=== PATIENT | female | born 1980 | race Caucasian/White ===

== ENCOUNTER 2017-08-26 22:30 | Emergency (ER) | payer MEDICAID ==
[~2017-08-26] VITALS: Ht 157.5 cm; Wt 94.5 kg
[~2017-08-26 22:30] MED LIST: ALBU8.5H8 IH; CARI350T PO; CHLO118M PO; CLIN-79 PO; DOXY-1 PO; HYDR-569 PO; NITR100C6 PO; NO HOME MEDS; ONDA8TAB9 PO
[2017-08-26] MEDS ORDERED: cephalexin 500mg capsule PO STA (23:13)
[2017-08-26] MEDS ORDERED: sulfamethoxazole/trimethoprim DS (800/160mg) tablet PO STA (23:13)
[2017-08-26] MEDS ORDERED: mupirocin 2% ointment 22GM TP STA (23:22)
[2017-08-26] MEDS ORDERED: MUPI22OI30 TOP (23:32)
[2017-08-26] MEDS ORDERED: BACDS PO (23:32)
[2017-08-26] MEDS ORDERED: CEPH500C2 PO (23:32)
[2017-08-26 23:36] VITALS: BP 124/81
== END 2017-08-26 23:44 | disposition home or self-care (01) ==
LOC: ER 22:31
DX: T81.4XXA Infection following a procedure, initial encounter (principal); I10 Essential (primary) hypertension; G43.909 Migraine, unspecified, not intractable, without status migrainosus; F15.10 Other stimulant abuse, uncomplicated; Z88.6 Allergy status to analgesic agent; Z88.1 Allergy status to other antibiotic agents; Z88.0 Allergy status to penicillin
CPT/HCPCS: 99284; A6255

== ENCOUNTER 2017-08-27 18:01 | Inpatient (IN) | payer MEDICAID ==
[~2017-08-27] VITALS: Ht 157.5 cm; Wt 94.5 kg
[~2017-08-27 18:01] MED LIST changes: +BACDS PO; +CEPH500C2 PO; +MUPI22OI30 TOP
[2017-08-27] MEDS ORDERED: normal saline 1000ml 1,000 ML IV ONE (20:25)
[2017-08-27] MEDS ORDERED: morphine 4 MG/ML inj SYRINge IV ONE (20:25)
[2017-08-27] MEDS ORDERED: ondansetron/PF 4mg/2ml inj IV ONE (20:25)
[2017-08-27] MEDS ORDERED: temazepam 15mg capsule PO PRN (21:00)
[2017-08-27 21:25] LABS: BASOPHILS # (AUTO) 0.1 X10'3 (0-0.2); BASOPHILS % (AUTO) 0.8 % (0-1); EOSINOPHILS # (AUTO) 0.3 X10'3 (0-0.9); EOSINOPHILS % (AUTO) 4.6 % (0-6); HEMATOCRIT 43.1 % (35.0-45.0); HEMOGLOBIN 15.1 g/dl (12.0-16.0); LYMPHOCYTES % (AUTO) 39.9 % (21-51); MEAN CORPUSCULAR HEMOGLOBIN 30.9 PG (27.0-31.0); MEAN CORPUSCULAR HGB CONC 34.9 % (33.0-36.5); MEAN CORPUSCULAR VOLUME 88.4 FL (78-98); MEAN PLATELET VOLUME 9.3 FL (7.4-10.4); MONOCYTES # (AUTO) 0.6 X10'3 (0-0.9); MONOCYTES % (AUTO) 7.7 % (2-12); NEUTROPHILS # (AUTO) 3.5 X10'3 (1.8-7.7); PLATELET COUNT 264 X10'3 (140-440); RED BLOOD COUNT 4.87 X10'6 (4.20-5.60); RED CELL DISTRIBUTION WIDTH 13.1 % (11.5-14.5); WHITE BLOOD COUNT 7.5 X10'3 (4.5-11.0)
[2017-08-27 21:41] LABS: ALANINE AMINOTRANSFERASE 22 U/L (12-78); ALBUMIN 4.3 G/DL (3.4-5.0); ALBUMIN/GLOBULIN RATIO 1.2 (1.1-1.5); ALKALINE PHOSPHATASE 88 IU/L (46-116); ANION GAP 10 (8-16); ASPARTATE AMINO TRANSFERASE 12 U/L (10-37); BILIRUBIN,TOTAL 0.4 MG/DL (0.1-1.0); BLOOD UREA NITROGEN 11 MG/DL (7-18); BUN/CREATININE RATIO 13.6 (6.6-38.0); CALCIUM 9.5 MG/DL (8.5-10.1); CHLORIDE 103 MMOL/L (99-107); CREATININE 0.81 MG/DL (0.40-0.90); GLUCOSE 96 MG/DL (70-104); POTASSIUM 3.7 MMOL/L (3.5-5.1); SODIUM 139 MMOL/L (135-145); TOTAL CARBON DIOXIDE 26.2 MMOL/L (24-32); TOTAL PROTEIN 7.8 G/DL (6.4-8.2); eGFR 79 ML/MIN
[2017-08-27] MEDS ORDERED: magnesium hydroxide 30ml (MOM) UD suspension PO PRN (22:40)
[2017-08-27] MEDS ORDERED: HYDROcodone/acetaminophen 5mg/325mg tablet PO PRN (22:40)
[2017-08-27] MEDS ORDERED: ondansetron/PF 4mg/2ml inj IV PRN (22:40)
[2017-08-27] MEDS ORDERED: acetaminophen 650mg rectal suppository RC PRN (22:40)
[2017-08-27] MEDS ORDERED: acetaminophen 325mg tablet PO PRN ×2 (22:40)
[2017-08-27] MEDS ORDERED: diphenhydrAMINE 50 mg/ml inj IV PRN (22:40)
[2017-08-27] MEDS ORDERED: bisacodyl 10mg suppository rectal RC PRN (22:40)
[2017-08-27] MEDS ORDERED: mag hydrox/Alum hydrox/simeth 30ml oral suspension PO PRN (22:40)
[2017-08-27] MEDS ORDERED: metoclopramide 5 mg/ml inj IV PRN (22:40)
[2017-08-27] MEDS ORDERED: albuterol 2.5 MG/3 ML nebule NEB PRN (22:50)
[2017-08-27] MEDS ORDERED: cyclobenzaprine 10mg tablet PO PRN (22:50)
[2017-08-27] MEDS: normal saline 1000ml 1,000 ML IV SCH (23:19)
[2017-08-27 23:45] VITALS: BP 116/46
[2017-08-28] MEDS ORDERED: clindamycin-Cleocin 900mg/D5W 50 ML IV SCH
[2017-08-28] MEDS: clindamycin 600mg/D5W 50ml 50 ML IV SCH ×3 (00:18→16:39)
[2017-08-28] MEDS: HYDROcodone/acetaminophen 10/325mg tab PO PRN ×4 (04:53→19:15)
[2017-08-28 05:19] LABS: BASOPHILS % (AUTO) 0.6 % (0-1); EOSINOPHILS # (AUTO) 0.4 X10'3 (0-0.9); EOSINOPHILS % (AUTO) 5.4 % (0-6); HEMATOCRIT 39.3 % (35.0-45.0); LYMPHOCYTES # (AUTO) 2.7 X10'3 (1.1-4.8); LYMPHOCYTES % (AUTO) 33.7 % (21-51); MEAN CORPUSCULAR HEMOGLOBIN 31.5 PG (27.0-31.0); MEAN CORPUSCULAR HGB CONC 35.7 % (33.0-36.5); MEAN CORPUSCULAR VOLUME 88.1 FL (78-98); MONOCYTES # (AUTO) 0.6 X10'3 (0-0.9); MONOCYTES % (AUTO) 7.8 % (2-12); NEUTROPHILS # (AUTO) 4.2 X10'3 (1.8-7.7); NEUTROPHILS % (AUTO) 52.5 % (42-75); PLATELET COUNT 220 X10'3 (140-440); RED BLOOD COUNT 4.46 X10'6 (4.20-5.60); RED CELL DISTRIBUTION WIDTH 13.2 % (11.5-14.5); WHITE BLOOD COUNT 7.9 X10'3 (4.5-11.0)
[2017-08-28 05:40] LABS: ANION GAP 9 (8-16); BLOOD UREA NITROGEN 11 MG/DL (7-18); BUN/CREATININE RATIO 13.8 (6.6-38.0); CHLORIDE 107 MMOL/L (99-107); GLUCOSE 99 MG/DL (70-104); POTASSIUM 4.3 MMOL/L (3.5-5.1); SODIUM 141 MMOL/L (135-145); TOTAL CARBON DIOXIDE 25.2 MMOL/L (24-32)
[2017-08-28 05:41] LABS: ALANINE AMINOTRANSFERASE 22 U/L (12-78); ALBUMIN 3.3 G/DL (3.4-5.0); ALBUMIN/GLOBULIN RATIO 1.2 (1.1-1.5); ALKALINE PHOSPHATASE 72 IU/L (46-116); ASPARTATE AMINO TRANSFERASE 11 U/L (10-37); BILIRUBIN,TOTAL 0.5 MG/DL (0.1-1.0); CALCIUM 7.9 MG/DL (8.5-10.1); TOTAL PROTEIN 6.1 G/DL (6.4-8.2); eGFR 80 ML/MIN
[2017-08-28 06:00] VITALS: BP 83/45
[2017-08-28 06:10] VITALS: BP 93/56
[2017-08-28] MEDS: docusate sod 100mg capsule PO SCH ×2 (08:49→19:15)
[2017-08-28] MEDS: lamoTRIgine 100mg tablet PO SCH (08:49)
[2017-08-28] MEDS: pantoprazole 40mg Tablet.DR PO SCH (08:49)
[2017-08-28] MEDS: heparin, porcine 5000 units/ml vial SQ SCH ×2 (08:52→19:16)
[2017-08-28] MEDS: diphenhydrAMINE 25mg capsule PO PRN ×3 (08:56→20:59)
[2017-08-28] MEDS: normal saline 1000ml 1,000 ML IV SCH ×2 (09:02→19:16)
[2017-08-28 10:00] VITALS: BP 99/59
[2017-08-28] MEDS ORDERED: normal saline 1000ml 1,000 ML IV ONE (10:55)
[2017-08-28 18:00] VITALS: BP 103/61
[2017-08-28 22:00] VITALS: BP 97/45
[2017-08-29] MEDS: HYDROcodone/acetaminophen 10/325mg tab PO PRN ×4 (00:53→16:52)
[2017-08-29] MEDS: normal saline 1000ml 1,000 ML IV SCH (04:56)
[2017-08-29 05:48] LABS: BASOPHILS % (AUTO) 0.7 % (0-1); EOSINOPHILS # (AUTO) 0.3 X10'3 (0-0.9); EOSINOPHILS % (AUTO) 6.1 % (0-6); LYMPHOCYTES # (AUTO) 2.7 X10'3 (1.1-4.8); LYMPHOCYTES % (AUTO) 47.4 % (21-51); MEAN CORPUSCULAR VOLUME 88.7 FL (78-98); MONOCYTES # (AUTO) 0.5 X10'3 (0-0.9); MONOCYTES % (AUTO) 8.8 % (2-12); NEUTROPHILS # (AUTO) 2.1 X10'3 (1.8-7.7); PLATELET COUNT 221 X10'3 (140-440); RED BLOOD COUNT 4.52 X10'6 (4.20-5.60); RED CELL DISTRIBUTION WIDTH 12.9 % (11.5-14.5); WHITE BLOOD COUNT 5.7 X10'3 (4.5-11.0)
[2017-08-29 06:00] VITALS: BP 96/57
[2017-08-29 06:09] LABS: ALBUMIN 3.3 G/DL (3.4-5.0); ALBUMIN/GLOBULIN RATIO 1.1 (1.1-1.5); ALKALINE PHOSPHATASE 74 IU/L (46-116); ANION GAP 7 (8-16); ASPARTATE AMINO TRANSFERASE 13 U/L (10-37); BILIRUBIN,TOTAL 0.4 MG/DL (0.1-1.0); BLOOD UREA NITROGEN 10 MG/DL (7-18); BUN/CREATININE RATIO 13.2 (6.6-38.0); CALCIUM 8.1 MG/DL (8.5-10.1); CHLORIDE 108 MMOL/L (99-107); CREATININE 0.76 MG/DL (0.40-0.90); GLUCOSE 99 MG/DL (70-104); POTASSIUM 4.4 MMOL/L (3.5-5.1); SODIUM 142 MMOL/L (135-145); TOTAL CARBON DIOXIDE 26.7 MMOL/L (24-32); TOTAL PROTEIN 6.3 G/DL (6.4-8.2); eGFR 85 ML/MIN
[2017-08-29 06:19] LABS: ALANINE AMINOTRANSFERASE 14 U/L (12-78)
[2017-08-29] MEDS: pantoprazole 40mg Tablet.DR PO SCH (07:30)
[2017-08-29] MEDS: docusate sod 100mg capsule PO SCH (08:00)
[2017-08-29] MEDS: clindamycin 600mg/D5W 50ml 50 ML IV SCH ×2 (08:00→16:52)
[2017-08-29] MEDS: heparin, porcine 5000 units/ml vial SQ SCH (08:00)
[2017-08-29] MEDS: lamoTRIgine 100mg tablet PO SCH (08:00)
[2017-08-29] MEDS: diphenhydrAMINE 25mg capsule PO PRN (10:54)
[2017-08-29] MEDS ORDERED: lactobacillus rhamnosus 10,000 MMU CELLS/CAPSULE PO SCH (17:30)
[2017-08-29] MEDS ORDERED: CLIN-80 PO (18:21)
== END 2017-08-29 19:00 | disposition home or self-care (01) | DRG 721 ==
LOC: ER 18:02 → ED HOLD 22:39 → ORTHO 4S 23:50
PROVIDERS: ADMIT Family Medicine; ATTEND Internal Medicine
DX: T81.4XXA Infection following a procedure, initial encounter (principal); I95.9 Hypotension, unspecified; I10 Essential (primary) hypertension; L03.114 Cellulitis of left upper limb; F15.90 Other stimulant use, unspecified, uncomplicated; F41.9 Anxiety disorder, unspecified; G43.909 Migraine, unspecified, not intractable, without status migrainosus; M62.838 Other muscle spasm; M79.89 Other specified soft tissue disorders; Z88.5 Allergy status to narcotic agent; Z88.0 Allergy status to penicillin; Z88.1 Allergy status to other antibiotic agents
CPT/HCPCS: 36415; 73070; 80053; 83605; 85025; 87040; 87070; 93971; 94760; 96361; 96374; 96375; 99285; A6446; A6449; J1200; J1644; J2270; J2405; J3490; J7030; Q0163

== ENCOUNTER 2017-11-28 18:05 | Emergency (ER) | payer MEDICAID ==
[~2017-11-28] VITALS: Ht 152.4 cm; Wt 100.0 kg
[~2017-11-28 18:05] MED LIST changes: -BACDS PO; -CEPH500C2 PO; -CHLO118M PO; -CLIN-79 PO; +CLIN-80 PO; -DOXY-1 PO; -HYDR-569 PO; -MUPI22OI30 TOP; -NITR100C6 PO; -NO HOME MEDS; -ONDA8TAB9 PO
[2017-11-28] MEDS ORDERED: CLIN-80 PO (20:29)
[2017-11-28] MEDS ORDERED: proCHLORperazine 10 MG/2 ml inj IM ONE (20:30)
[2017-11-28] MEDS ORDERED: clindamycin 150mg capsule PO ONE (20:30)
[2017-11-28] MEDS ORDERED: cyclobenzaprine 10mg tablet PO ONE (20:30)
[2017-11-28 21:00] VITALS: BP 140/85
== END 2017-11-28 21:01 | disposition home or self-care (01) ==
LOC: ER 18:05
DX: K04.7 Periapical abscess without sinus (principal); G43.909 Migraine, unspecified, not intractable, without status migrainosus; I10 Essential (primary) hypertension; F15.90 Other stimulant use, unspecified, uncomplicated; Z98.890 Other specified postprocedural states; Z60.2 Problems related to living alone; Z88.0 Allergy status to penicillin; Z88.5 Allergy status to narcotic agent; Z88.8 Allergy status to other drugs, medicaments and biological substances; Z79.899 Other long term (current) drug therapy
CPT/HCPCS: 96372; 99283; J0780

== ENCOUNTER 2018-03-13 15:32 | Emergency (ER) | payer MEDICAID ==
[~2018-03-13] VITALS: Ht 157.5 cm; Wt 97.0 kg
[~2018-03-13 15:32] MED LIST changes: -CLIN-80 PO; +CLIN300C85 PO
[2018-03-13] MEDS ORDERED: normal saline 1000ML IV soln IVB ONE (15:40)
[2018-03-13] MEDS ORDERED: ketorolac trometh. 30mg/ml inj. IV ONE (15:40)
[2018-03-13] MEDS ORDERED: morphine 4 MG/ML inj SYRINge IV PRN (15:40)
[2018-03-13] MEDS ORDERED: ondansetron/PF 4mg/2ml inj IV ONE (15:40)
[2018-03-13] MEDS ORDERED: LORazepam 2 mg/ml vial IV ONE (15:40)
[2018-03-13 16:05] LABS: BASOPHILS % (AUTO) 0.3 % (0-1); EOSINOPHILS # (AUTO) 0.1 X10'3 (0-0.9); EOSINOPHILS % (AUTO) 1.4 % (0-6); HEMATOCRIT 42.2 % (35.0-45.0); HEMOGLOBIN 14.5 g/dl (12.0-16.0); LYMPHOCYTES # (AUTO) 1.6 X10'3 (1.1-4.8); LYMPHOCYTES % (AUTO) 19.2 % (21-51); MEAN CORPUSCULAR HEMOGLOBIN 30.9 PG (27.0-31.0); MEAN CORPUSCULAR HGB CONC 34.3 % (33.0-36.5); MEAN PLATELET VOLUME 8.4 FL (7.4-10.4); MONOCYTES # (AUTO) 0.6 X10'3 (0-0.9); MONOCYTES % (AUTO) 7.8 % (2-12); NEUTROPHILS # (AUTO) 5.9 X10'3 (1.8-7.7); NEUTROPHILS % (AUTO) 71.3 % (42-75); PLATELET COUNT 301 X10'3 (140-440); RED BLOOD COUNT 4.69 X10'6 (4.20-5.60); RED CELL DISTRIBUTION WIDTH 12.9 % (11.5-14.5); WHITE BLOOD COUNT 8.3 X10'3 (4.5-11.0)
[2018-03-13 16:20] LABS: ALANINE AMINOTRANSFERASE 21 U/L (12-78); ALBUMIN 3.9 G/DL (3.4-5.0); ALBUMIN/GLOBULIN RATIO 1.2 (1.1-1.5); ALKALINE PHOSPHATASE 101 IU/L (46-116); ANION GAP 10 (8-16); ASPARTATE AMINO TRANSFERASE 8 U/L (10-37); BILIRUBIN,TOTAL 0.4 MG/DL (0.1-1.0); BLOOD UREA NITROGEN 6 MG/DL (7-18); BUN/CREATININE RATIO 9.5 (6.6-38.0); CALCIUM 9.2 MG/DL (8.5-10.1); CHLORIDE 102 MMOL/L (99-107); CREATININE 0.63 MG/DL (0.40-0.90); GLUCOSE 111 MG/DL (70-104); SODIUM 137 MMOL/L (135-145); TOTAL CARBON DIOXIDE 25.3 MMOL/L (24-32); TOTAL PROTEIN 7.2 G/DL (6.4-8.2); eGFR > 90 ML/MIN
[2018-03-13] MEDS ORDERED: DOXY100C43 PO (16:25)
[2018-03-13] MEDS ORDERED: CYCL-1 PO (16:25)
[2018-03-13] MEDS ORDERED: KETO10TA2 PO (16:25)
[2018-03-13] MEDS ORDERED: HYDR-569 PO (16:26)
[2018-03-13 17:35] VITALS: BP 119/73
== END 2018-03-13 17:47 | disposition home or self-care (01) ==
LOC: ER 15:32
DX: G89.18 Other acute postprocedural pain (principal); K08.89 Other specified disorders of teeth and supporting structures; I10 Essential (primary) hypertension; F41.9 Anxiety disorder, unspecified; F15.10 Other stimulant abuse, uncomplicated; G43.909 Migraine, unspecified, not intractable, without status migrainosus; Z88.0 Allergy status to penicillin; Z88.5 Allergy status to narcotic agent; Z88.1 Allergy status to other antibiotic agents
CPT/HCPCS: 36415; 80053; 85025; 96374; 96375; 99284; J1885; J2060; J2270; J2405; J7030

== ENCOUNTER 2018-05-27 19:20 | Emergency (ER) | payer MEDICAID ==
[~2018-05-27] VITALS: Ht 157.5 cm; Wt 100.0 kg
[~2018-05-27 19:20] MED LIST changes: +CYCL-1 PO; +HYDR-4383 PO; +KETO10TA2 PO
[2018-05-27] MEDS ORDERED: ondansetron 4mg rapidly disintigrating tab PO ONE (21:00)
[2018-05-27] MEDS ORDERED: orphenadrine citrate 60mg/2ml inj. IM ONE (21:00)
[2018-05-27] MEDS ORDERED: HYDROcodone/acetaminophen 5mg/325mg tablet PO ONE (21:00)
[2018-05-27] MEDS ORDERED: ketorolac trometh inj. 60 MG/2 ML VIAL IM ONE (21:00)
[2018-05-27] MEDS ORDERED: diphenhydrAMINE 50 mg/ml inj IM ONE (21:30)
[2018-05-27 21:40] VITALS: BP 116/58
[2018-05-27] MEDS ORDERED: HYDR-3965 PO (22:02)
[2018-05-27] MEDS ORDERED: LIDOcaine 5% patch TP ONE (22:05)
[2018-05-27 22:15] LABS: URINE AMPHETAMINE SCREEN NEGATIVE (Neg); URINE BARBITUATE SCREEN NEGATIVE (Neg); URINE BENZODIAZEPINES SCREEN NEGATIVE (Neg); URINE CANNABINOID SCREEN NEGATIVE (Neg); URINE COCAINE SCREEN NEGATIVE (Neg); URINE METHADONE SCREEN NEGATIVE (Neg); URINE OPIATE SCREEN NEGATIVE (Neg); URINE PHENCYCLIDINE SCREEN NEGATIVE (Neg)
[2018-05-27 22:16] LABS: CLARITY,URINE CLEAR (Clear); COLOR,URINE YELLOW (Yellow); GLUCOSE, URINE NEGATIVE (Neg); KETONES,URINE NEGATIVE (Neg); LEUKOCYTE ESTERASE ,URINE NEGATIVE (Neg); NITRITES, URINE NEGATIVE (Neg); OCCULT BLOOD,URINE NEGATIVE (Neg); PROTEIN,URINE NEGATIVE (Neg); UROBILINOGEN,URINE 0.2 E.U/dL (0.2-1.0)
[2018-05-27 22:23] LABS: UA COLLECTION TYPE CLN CATCH MIDSTREAM
== END 2018-05-27 22:50 | disposition home or self-care (01) ==
LOC: ER 19:20
DX: M54.5 Low back pain (principal); M54.6 Pain in thoracic spine; G43.909 Migraine, unspecified, not intractable, without status migrainosus; I10 Essential (primary) hypertension; F15.90 Other stimulant use, unspecified, uncomplicated; Z88.0 Allergy status to penicillin; Z88.6 Allergy status to analgesic agent; Z88.1 Allergy status to other antibiotic agents; Z91.018 Allergy to other foods; Z98.890 Other specified postprocedural states; Z60.2 Problems related to living alone
CPT/HCPCS: 80305; 81003; 96372; 99284; J1200; J1885; J2360

== ENCOUNTER 2018-06-18 17:02 | Emergency (ER) | payer MEDICAID ==
[~2018-06-18] VITALS: Ht 157.5 cm; Wt 99.0 kg
[~2018-06-18 17:02] MED LIST changes: +HYDR-3965 PO
[2018-06-18 17:09] VITALS: BP 144/85
[2018-06-18] MEDS ORDERED: ketorolac trometh. 30mg/ml inj. IV ONE (18:00)
[2018-06-18] MEDS ORDERED: diazepam 5mg tablet PO ONE (18:25)
== END 2018-06-18 18:36 | disposition home or self-care (01) ==
LOC: ER 17:03
DX: M54.41 Lumbago with sciatica, right side (principal); M54.42 Lumbago with sciatica, left side; G43.909 Migraine, unspecified, not intractable, without status migrainosus; I10 Essential (primary) hypertension; F15.90 Other stimulant use, unspecified, uncomplicated; Z98.890 Other specified postprocedural states; Z88.0 Allergy status to penicillin; Z88.5 Allergy status to narcotic agent; Z88.1 Allergy status to other antibiotic agents; Z79.899 Other long term (current) drug therapy
CPT/HCPCS: 96374; 99283; J1885

== ENCOUNTER 2018-07-29 20:54 | Emergency (ER) | payer MEDICAID ==
[~2018-07-29] VITALS: Ht 157.5 cm; Wt 100.9 kg
[~2018-07-29 20:54] MED LIST changes: -HYDR-3965 PO
[2018-07-29] MEDS ORDERED: HYDROcodone/acetaminophen 10/325mg tab PO ONE (21:55)
[2018-07-29 22:13] VITALS: BP 135/85
== END 2018-07-29 22:15 | disposition home or self-care (01) ==
LOC: ER 20:55
DX: G89.29 Other chronic pain (principal); M54.5 Low back pain; I10 Essential (primary) hypertension; G43.909 Migraine, unspecified, not intractable, without status migrainosus; F15.90 Other stimulant use, unspecified, uncomplicated; Z88.6 Allergy status to analgesic agent; Z88.1 Allergy status to other antibiotic agents; Z88.0 Allergy status to penicillin
CPT/HCPCS: 99282

== ENCOUNTER 2018-08-28 10:33 | Emergency (ER) | payer MEDICAID ==
[~2018-08-28] VITALS: Ht 157.5 cm; Wt 100.9 kg
[2018-08-28 13:11] LABS: BASOPHILS % (AUTO) 0.5 % (0-1); EOSINOPHILS # (AUTO) 0.1 X10'3 (0-0.9); EOSINOPHILS % (AUTO) 1.5 % (0-6); HEMATOCRIT 42.6 % (35.0-45.0); HEMOGLOBIN 14.5 g/dl (12.0-16.0); LYMPHOCYTES # (AUTO) 2.1 X10'3 (1.1-4.8); LYMPHOCYTES % (AUTO) 26.4 % (21-51); MEAN CORPUSCULAR HEMOGLOBIN 30.6 PG (27.0-31.0); MEAN CORPUSCULAR HGB CONC 34.2 g/dL (33.0-36.5); MEAN CORPUSCULAR VOLUME 89.7 FL (78-98); MEAN PLATELET VOLUME 8.3 FL (7.4-10.4); MONOCYTES # (AUTO) 0.4 X10'3 (0-0.9); MONOCYTES % (AUTO) 5.7 % (2-12); NEUTROPHILS # (AUTO) 5.2 X10'3 (1.8-7.7); NEUTROPHILS % (AUTO) 65.9 % (42-75); PLATELET COUNT 260 X10'3 (140-440); RED BLOOD COUNT 4.74 X10'6 (4.20-5.60); RED CELL DISTRIBUTION WIDTH 13.9 % (11.5-14.5); WHITE BLOOD COUNT 7.9 X10'3 (4.5-11.0)
[2018-08-28 13:25] LABS: ALANINE AMINOTRANSFERASE 14 U/L (12-78); ALBUMIN/GLOBULIN RATIO 1.1 (1.1-1.5); ALKALINE PHOSPHATASE 108 IU/L (46-116); ASPARTATE AMINO TRANSFERASE 9 U/L (10-37); BILIRUBIN,TOTAL 0.3 MG/DL (0.1-1.0); BLOOD UREA NITROGEN 15 MG/DL (7-18); BUN/CREATININE RATIO 22.4 (6.6-38.0); CALCIUM 8.6 MG/DL (8.5-10.1); CHLORIDE 105 MMOL/L (99-107); CREATININE 0.67 MG/DL (0.40-0.90); GLUCOSE 103 MG/DL (70-104); POTASSIUM 3.9 MMOL/L (3.5-5.1); TOTAL CARBON DIOXIDE 29.8 MMOL/L (24-32); TOTAL PROTEIN 7.7 G/DL (6.4-8.2); eGFR > 90 ML/MIN
[2018-08-28 13:33] LABS: ETHANOL < 0.010 GM/DL (0.0-0.010)
[2018-08-28 13:34] LABS: ANION GAP 7 (8-16); SODIUM 142 MMOL/L (135-145)
--- NOTE | 2018-08-28 13:36 | NUR ---
PHONED IN REQUEST FOR TELE PSYCH, INFORMATION GIVEN
[2018-08-28 13:39] LABS: URINE HCG NEGATIVE (NEG)
[2018-08-28] MEDS ORDERED: acetaminophen 325mg tablet PO PRN (13:40)
[2018-08-28 13:45] LABS: URINE AMPHETAMINE SCREEN NEGATIVE (Neg); URINE BARBITUATE SCREEN NEGATIVE (Neg); URINE BENZODIAZEPINES SCREEN NEGATIVE (Neg); URINE CANNABINOID SCREEN NEGATIVE (Neg); URINE COCAINE SCREEN NEGATIVE (Neg); URINE METHADONE SCREEN NEGATIVE (Neg); URINE OPIATE SCREEN NEGATIVE (Neg); URINE PHENCYCLIDINE SCREEN NEGATIVE (Neg)
[2018-08-28] MEDS ORDERED: LORazepam 1 MG tablet PO ONE (13:45)
[2018-08-28] MEDS: acetaminophen 325mg tablet PO PRN ×2 (13:49→23:48)
--- NOTE | 2018-08-28 14:55 | NUR ---
TELE PSYCH COMPLETE, NOTE TO FOLLOW. RECOMMENDING [id number]
[2018-08-28 15:11] LABS: CLARITY,URINE SLIGHTLY CLOUDY (Clear); COLOR,URINE YELLOW (Yellow); GLUCOSE, URINE NEGATIVE (Neg); KETONES,URINE NEGATIVE (Neg); LEUKOCYTE ESTERASE ,URINE NEGATIVE (Neg); NITRITES, URINE NEGATIVE (Neg); OCCULT BLOOD,URINE LARGE (Neg); PROTEIN,URINE NEGATIVE (Neg); UA COLLECTION TYPE NON-SPECIFIED; UROBILINOGEN,URINE 0.2 E.U/dL (0.2-1.0)
[2018-08-28 15:16] LABS: BACTERIA,URINE FEW /HPF (Neg); MUCUS STRANDS FEW /LPF (Neg); SQUAMOUS EPITHELIAL CELL,UR MANY /LPF (FEW); WBC,URINE 0-4 /HPF (0-4)
[2018-08-28] MEDS ORDERED: BREXPIPRAZOLE 2 MG PO SCH (19:10)
--- NOTE | 2018-08-28 19:50 | NUR ---
PT ASKED FOR PAIN MEDS FOR BACK PAIN.
[2018-08-28] MEDS ORDERED: HYDROcodone/acetaminophen 5mg/325mg tablet PO ONE (19:55)
[2018-08-28] MEDS: BREXPIPRAZOLE 2 MG PO SCH (20:07)
[2018-08-28] MEDS: lamoTRIgine 100mg tablet PO SCH (20:07)
[2018-08-28] MEDS: benztropine 1mg tablet PO SCH (20:07)
--- NOTE | 2018-08-28 20:51 | NUR ---
PT IS ASKING ABOUT WHEN HER NEIGHBOR WILL TURN HER LIGHT OFF, PT IS BOTHERED AND WANTS TO SLEEP.
--- NOTE | 2018-08-28 21:54 | NUR ---
PT IS LYING ON RIGHT SIDE, APPEARS TO BE SLEEPING
--- NOTE | 2018-08-28 23:13 | NUR ---
pt is sleeping, rr 15 unlabored
--- NOTE | 2018-08-28 23:49 | NUR ---
pt is co back pain, asked for another norco. pt was given tylenol.
--- NOTE | 2018-08-29 00:44 | NUR ---
pt is lying prone, appears to be sleeping. rr wnl
[2018-08-29] MEDS ORDERED: DIPH25CA46 PO (01:34)
[2018-08-29] MEDS ORDERED: AMPH30CA10 PO (01:34)
[2018-08-29] MEDS ORDERED: LAMO100T89 PO (01:34)
[2018-08-29] MEDS ORDERED: BENZ1TAB8 PO (01:34)
[2018-08-29] MEDS ORDERED: BREX2TAB PO (01:37)
[2018-08-29] MEDS ORDERED: diphenhydrAMINE 25mg capsule PO PRN (01:50)
[2018-08-29] MEDS ORDERED: ketorolac trometh. 30mg/ml inj. IM ONE (02:45)
--- NOTE | 2018-08-29 02:57 | NUR ---
pt co back pain, asked for something for pain. 30 mg toradol im given, pt now resting in bed.
--- NOTE | 2018-08-29 04:10 | NUR ---
pt is sleeping
--- NOTE | 2018-08-29 05:18 | NUR ---
pt is sleeping, rr unlabored, will continue to monitor
--- NOTE | 2018-08-29 06:59 | NUR ---
Pt up to the bathroom.
[2018-08-29] MEDS ORDERED: lamoTRIgine 100mg tablet PO SCH (08:00)
--- NOTE | 2018-08-29 08:45 | NUR ---
Pt evaluated by [facility], she is being placed on a 5150.
--- NOTE | 2018-08-29 09:00 | NUR ---
Pt became tearful after being told she was being placed on a 5150. "I just want to see my baby." Pt stated that it took 1 1/2 years to get him back and now he has returned to his foster mom. Pt expressed frustration over not being allowed to use her cell phone here and not having her medications adjusted while she is here.
--- NOTE | 2018-08-29 11:00 | NUR ---
Pt requested some deodorant, hygiene bucket provided.
[2018-08-29] MEDS: LORazepam 1 MG tablet PO PRN ×2 (13:03→21:10)
--- NOTE | 2018-08-29 13:30 | NUR ---
relieving RN for lunch, pt is eating lunch, [place], no n/v
[2018-08-29] MEDS: acetaminophen 325mg tablet PO PRN (13:44)
--- NOTE | 2018-08-29 14:08 | NUR ---
PT REPORTS HAS CHRONIC BACK PAIN, "TWO CRACKED VERTABRAE AND A BULGING DISC" PT REPORTS WAITING FOR APPROVAL AT [facility] TRENT MAZA, CALLED [phone] SPOKE WITH AYDEE AND PT CHART NOTED DO NOT GIVE PAIN MEDICATIONS DUE TO CURES REPORT PT RECEIVING NARCOTIC AND PAIN MEDICATIONS FROM [facility] IN JUN AND JULY, DISCUSSED PT PAIN WTIH DR JULIANNA VARNER RECEIVED VERBAL ORDER FOR 400MG IBUPROFEN Q6 HOURS PRN PAIN.
[2018-08-29] MEDS ORDERED: ibuprofen tablet 400 MG TABLET PO PRN (14:15)
--- NOTE | 2018-08-29 15:52 | NUR ---
Altagracia called to ask questions about the patient.
[2018-08-29] MEDS: LIDOcaine 5% patch TP SCH (17:12)
--- NOTE | 2018-08-29 17:24 | NUR ---
Obtained order for lidocaine patch for back pain, applied patch and administered 400 mg ibuprofen, gave with janeth crackers and milk.
--- NOTE | 2018-08-29 18:40 | NUR ---
PATIENT SITTING ON SIDE OF BED EATING DINNER, PRIOR TO DINNER PATIENT RECIEVED A PHONE CALL. PATIENT STATES SHE FEELS ANXIOUS AND WOULD LIKE ATIVAN. INFORMED PATIENT THAT ATIVAN CAN NOT BE GIVEN QUITE YET, IT IS Q8H. PATIENT SEEMED TO UNDERSTAND.
--- NOTE | 2018-08-29 19:34 | NUR ---
PATIENT REQUESTED PHONE AGAIN, PATIENT STATES THAT SHE WANTS TO GET BETTER AND GET HOME TO HER SON.
[2018-08-29] MEDS: lamoTRIgine 100mg tablet PO SCH (20:07)
[2018-08-29] MEDS: benztropine 1mg tablet PO SCH (20:07)
[2018-08-29] MEDS: BREXPIPRAZOLE 2 MG PO SCH (20:09)
--- NOTE | 2018-08-29 20:30 | NUR ---
Patient wanted to continually use the phone, it is now 2029 and phone and visiting hours are over. Patient now happy about this, I advised her she could use the phone in the morning.
[2018-08-29] MEDS ORDERED: benztropine 1mg tablet PO SCH (21:00)
--- NOTE | 2018-08-29 21:19 | NUR ---
GAVE PATIENT ANXIETY MEDICATION, PATIENT UP TO RESTROOM .
--- NOTE | 2018-08-30 00:44 | NUR ---
PT UP TO RESTROOM, REQUESTED SNACK.
--- NOTE | 2018-08-30 05:00 | NUR ---
patient up to desk requesting medication for back pain and anxiety. patient went back to her room.
[2018-08-30] MEDS: acetaminophen 325mg tablet PO PRN (05:12)
[2018-08-30] MEDS: LORazepam 1 MG tablet PO PRN (05:12)
[2018-08-30 05:49] VITALS: BP 90/55
[2018-08-30] MEDS: LIDOcaine 5% patch TP SCH (08:00)
--- NOTE | 2018-08-30 09:33 | NUR ---
RN receibved phone call from [facility] stating pt woul;d be transferred to [facility] at around 1030. Call from pt's adoption social worker wanting an update on pt. No new meds started on pt.
== END 2018-08-30 11:00 ==
LOC: ER 10:33
DX: F41.9 Anxiety disorder, unspecified (principal); I10 Essential (primary) hypertension; G43.909 Migraine, unspecified, not intractable, without status migrainosus; F12.90 Cannabis use, unspecified, uncomplicated; Z88.6 Allergy status to analgesic agent; Z88.1 Allergy status to other antibiotic agents; Z88.0 Allergy status to penicillin
CPT/HCPCS: 36415; 80053; 80305; 80320; 81001; 81025; 84443; 85025; 96372; 99285; J1885; Q0163

== ENCOUNTER 2019-04-19 19:09 | Emergency (ER) | payer MEDICAID ==
[~2019-04-19] VITALS: Ht 157.5 cm; Wt 103.6 kg
[~2019-04-19 19:09] MED LIST changes: +BENZ1TAB8 PO; +BREX2TAB PO; +CLIN-96 PO; -CLIN300C85 PO; +DEXT30CA6 PO; +DIPH25CA46 PO; +LAMO100T89 PO
[2019-04-19] MEDS ORDERED: proCHLORperazine 10 MG/2 ml inj IV PRN (20:20)
[2019-04-19 20:35] LABS: CLARITY,URINE CLEAR (Clear); COLOR,URINE YELLOW (Yellow); GLUCOSE, URINE NEGATIVE (Neg); KETONES,URINE NEGATIVE (Neg); LEUKOCYTE ESTERASE ,URINE NEGATIVE (Neg); NITRITES, URINE NEGATIVE (Neg); OCCULT BLOOD,URINE NEGATIVE (Neg); PROTEIN,URINE NEGATIVE (Neg); URINE HCG NEGATIVE (NEG); UROBILINOGEN,URINE 0.2 E.U/dL (0.2-1.0)
[2019-04-19 20:38] LABS: BASOPHILS # (AUTO) 0.1 X10'3 (0-0.2); BASOPHILS % (AUTO) 0.6 % (0-1); EOSINOPHILS # (AUTO) 0.1 X10'3 (0-0.9); EOSINOPHILS % (AUTO) 1.3 % (0-6); HEMATOCRIT 45.7 % (35.0-45.0); HEMOGLOBIN 16.1 g/dl (12.0-16.0); LYMPHOCYTES % (AUTO) 27.6 % (21-51); MEAN CORPUSCULAR HEMOGLOBIN 32.2 PG (27.0-31.0); MEAN CORPUSCULAR HGB CONC 35.2 g/dL (33.0-36.5); MEAN CORPUSCULAR VOLUME 91.4 FL (78-98); MEAN PLATELET VOLUME 8.4 FL (7.4-10.4); MONOCYTES # (AUTO) 0.7 X10'3 (0-0.9); MONOCYTES % (AUTO) 6.2 % (2-12); NEUTROPHILS # (AUTO) 6.9 X10'3 (1.8-7.7); NEUTROPHILS % (AUTO) 64.3 % (42-75); PLATELET COUNT 318 X10'3 (140-440); RED CELL DISTRIBUTION WIDTH 12.1 % (11.5-14.5); WHITE BLOOD COUNT 10.7 X10'3 (4.5-11.0)
[2019-04-19 20:42] LABS: UA COLLECTION TYPE CLN CATCH MIDSTREAM
[2019-04-19 20:48] LABS: ALANINE AMINOTRANSFERASE 40 U/L (12-78); ALBUMIN 4.4 G/DL (3.4-5.0); ALBUMIN/GLOBULIN RATIO 1.1 (1.1-1.5); ALKALINE PHOSPHATASE 101 IU/L (46-116); ANION GAP 7 (8-16); ASPARTATE AMINO TRANSFERASE 15 U/L (10-37); BILIRUBIN,TOTAL 0.5 MG/DL (0.1-1.0); BLOOD UREA NITROGEN 9 MG/DL (7-18); BUN/CREATININE RATIO 11.8 (6.6-38.0); CALCIUM 10.1 MG/DL (8.5-10.1); CHLORIDE 103 MMOL/L (99-107); CREATININE 0.76 MG/DL (0.40-0.90); GLUCOSE 95 MG/DL (70-104); LIPASE 64 U/L (73-393); POTASSIUM 3.8 MMOL/L (3.5-5.1); SODIUM 139 MMOL/L (135-145); TOTAL CARBON DIOXIDE 28.7 MMOL/L (24-32); TOTAL PROTEIN 8.3 G/DL (6.4-8.2); eGFR 85 ML/MIN
[2019-04-19] MEDS ORDERED: morphine 4 MG/ML inj SYRINge IV ONE (21:05)
[2019-04-19] MEDS ORDERED: PROC5TAB56 PO (21:27)
[2019-04-19 21:39] VITALS: BP 117/74
== END 2019-04-19 21:30 | disposition home or self-care (01) ==
LOC: ER 19:09
DX: R10.84 Generalized abdominal pain (principal); R11.2 Nausea with vomiting, unspecified; R19.7 Diarrhea, unspecified; G43.909 Migraine, unspecified, not intractable, without status migrainosus; I10 Essential (primary) hypertension; J45.909 Unspecified asthma, uncomplicated; F41.9 Anxiety disorder, unspecified; F15.90 Other stimulant use, unspecified, uncomplicated; F10.99 Alcohol use, unspecified with unspecified alcohol-induced disorder; Z98.890 Other specified postprocedural states; Z60.2 Problems related to living alone; Z88.0 Allergy status to penicillin; Z88.5 Allergy status to narcotic agent; Z88.1 Allergy status to other antibiotic agents; Z79.899 Other long term (current) drug therapy; Y90.9 Presence of alcohol in blood, level not specified
CPT/HCPCS: 36415; 80053; 81003; 81025; 83690; 85025; 85610; 96374; 96375; 99283; J0780; J2270

== ENCOUNTER 2019-04-28 19:51 | Emergency (ER) | payer MEDICAID ==
[~2019-04-28] VITALS: Ht 157.5 cm; Wt 103.6 kg
[~2019-04-28 19:51] MED LIST changes: +CLIN-90 PO; -CLIN-96 PO; +LAMO100T PO; -LAMO100T89 PO; +PROC5TAB56 PO
[2019-04-28 19:58] VITALS: BP 132/86
[2019-04-28] MEDS ORDERED: SUMAtriptan succ. 6 MG/0.5ml vial SQ ONE (20:20)
[2019-04-28] MEDS ORDERED: ketorolac trometh inj. 60 MG/2 ML VIAL IM ONE (20:20)
[2019-04-28] MEDS ORDERED: proCHLORperazine 10mg tablet PO ONE (20:20)
[2019-04-28] MEDS ORDERED: diphenhydrAMINE 25mg capsule PO ONE (20:20)
== END 2019-04-28 21:00 | disposition home or self-care (01) ==
LOC: ER 19:52
DX: G43.909 Migraine, unspecified, not intractable, without status migrainosus (principal); I10 Essential (primary) hypertension; F41.9 Anxiety disorder, unspecified; F17.200 Nicotine dependence, unspecified, uncomplicated; F15.90 Other stimulant use, unspecified, uncomplicated; F10.99 Alcohol use, unspecified with unspecified alcohol-induced disorder; Z60.2 Problems related to living alone; Z98.890 Other specified postprocedural states; Z86.2 Personal history of diseases of the blood and blood-forming organs and certain disorders involving the immune mechanism; Z88.0 Allergy status to penicillin; Z88.5 Allergy status to narcotic agent; Z79.899 Other long term (current) drug therapy; Y90.9 Presence of alcohol in blood, level not specified
CPT/HCPCS: 96372; 99283; J1885; Q0163; J3030; Q0164

== ENCOUNTER 2020-04-04 18:32 | Emergency (ER) | payer MEDICAID ==
[~2020-04-04] VITALS: Ht 157.5 cm; Wt 108.7 kg
[~2020-04-04 18:32] MED LIST changes: -CLIN-90 PO; +CLIN-97 PO
[2020-04-04] MEDS ORDERED: TRAM50TA2 PO (19:39)
[2020-04-04] MEDS ORDERED: traMADol 50MG tablet PO ONE (19:40)
[2020-04-04 20:00] VITALS: BP 128/86
== END 2020-04-04 20:03 | disposition home or self-care (01) ==
LOC: ER 18:32
DX: M25.561 Pain in right knee (principal); G43.909 Migraine, unspecified, not intractable, without status migrainosus; I10 Essential (primary) hypertension; F41.9 Anxiety disorder, unspecified; F15.90 Other stimulant use, unspecified, uncomplicated; Z86.2 Personal history of diseases of the blood and blood-forming organs and certain disorders involving the immune mechanism; Z98.890 Other specified postprocedural states; Z72.89 Other problems related to lifestyle; Z60.2 Problems related to living alone; Z88.0 Allergy status to penicillin; Z88.1 Allergy status to other antibiotic agents; Z88.5 Allergy status to narcotic agent; Z79.2 Long term (current) use of antibiotics; Z79.899 Other long term (current) drug therapy
CPT/HCPCS: 29505; 73564; 99284

== ENCOUNTER 2020-08-02 17:31 | Emergency (ER) | payer MEDICAID ==
[~2020-08-02] VITALS: Ht 157.5 cm; Wt 102.6 kg
[2020-08-02 17:38] VITALS: BP 155/99
[2020-08-02] MEDS ORDERED: SULF1TAB49 PO (17:57)
== END 2020-08-02 18:14 | disposition home or self-care (01) ==
LOC: ER 17:32
DX: L03.012 Cellulitis of left finger (principal); G43.909 Migraine, unspecified, not intractable, without status migrainosus; I10 Essential (primary) hypertension; Z88.0 Allergy status to penicillin; Z88.1 Allergy status to other antibiotic agents; Z88.8 Allergy status to other drugs, medicaments and biological substances; Z79.2 Long term (current) use of antibiotics; Z79.899 Other long term (current) drug therapy; Z86.2 Personal history of diseases of the blood and blood-forming organs and certain disorders involving the immune mechanism; Z98.891 History of uterine scar from previous surgery; Z72.89 Other problems related to lifestyle
CPT/HCPCS: 99283

== ENCOUNTER 2020-08-09 11:34 | Emergency (ER) | payer MEDICAID ==
[~2020-08-09] VITALS: Ht 157.5 cm; Wt 103.9 kg
[~2020-08-09 11:34] MED LIST changes: +SULF1TAB49 PO
[2020-08-09] MEDS ORDERED: ketorolac tromethamine 15mg/ml inj. IV ONE (12:45)
[2020-08-09] MEDS ORDERED: normal saline 1000ML IV soln IVB ONE (12:45)
[2020-08-09] MEDS ORDERED: morphine 4 MG/ML inj SYRINge IV PRN (12:45)
[2020-08-09] MEDS ORDERED: ondansetron/PF 4mg/2ml inj IV ONE (12:45)
[2020-08-09] MEDS ORDERED: tamsulosin 0.4mg capsule PO STA (12:46)
[2020-08-09 13:21] LABS: BASOPHILS # (AUTO) 0.1 X10'3 (0-0.2); BASOPHILS % (AUTO) 0.5 % (0-1); EOSINOPHILS # (AUTO) 0.1 X10'3 (0-0.9); HEMATOCRIT 45.1 % (35.0-45.0); HEMOGLOBIN 15.1 g/dl (12.0-16.0); LYMPHOCYTES # (AUTO) 2.7 X10'3 (1.1-4.8); LYMPHOCYTES % (AUTO) 18.1 % (21-51); MEAN CORPUSCULAR HEMOGLOBIN 30.5 PG (27.0-31.0); MEAN CORPUSCULAR HGB CONC 33.5 g/dL (33.0-36.5); MEAN CORPUSCULAR VOLUME 91.2 FL (78-98); MEAN PLATELET VOLUME 9.2 FL (7.4-10.4); MONOCYTES # (AUTO) 0.9 X10'3 (0-0.9); MONOCYTES % (AUTO) 5.9 % (2-12); NEUTROPHILS # (AUTO) 11.1 X10'3 (1.8-7.7); NEUTROPHILS % (AUTO) 74.5 % (42-75); PLATELET COUNT 321 X10'3 (140-440); RED BLOOD COUNT 4.95 X10'6 (4.20-5.60); RED CELL DISTRIBUTION WIDTH 13.1 % (11.5-14.5); WHITE BLOOD COUNT 14.9 X10'3 (4.5-11.0)
[2020-08-09 13:30] LABS: CLARITY,URINE CLOUDY (Clear); COLOR,URINE RED (Yellow); PH,URINE 8.5 (4.8-8.0)
[2020-08-09 13:32] LABS: UA COLLECTION TYPE VOIDED
[2020-08-09 13:34] LABS: ALANINE AMINOTRANSFERASE 33 U/L (12-78); ALBUMIN 4.2 G/DL (3.4-5.0); ALBUMIN/GLOBULIN RATIO 1.1 (1.1-1.5); ALKALINE PHOSPHATASE 112 IU/L (46-116); ANION GAP 11 (8-16); ASPARTATE AMINO TRANSFERASE 17 U/L (10-37); BILIRUBIN,TOTAL 0.3 MG/DL (0.1-1.0); BLOOD UREA NITROGEN 9 MG/DL (7-18); BUN/CREATININE RATIO 10.7 (6.6-38.0); CHLORIDE 102 MMOL/L (99-107); CREATININE 0.84 MG/DL (0.40-0.90); GLUCOSE 133 MG/DL (70-104); SODIUM 137 MMOL/L (135-145); TOTAL CARBON DIOXIDE 23.8 MMOL/L (24-32); eGFR 75 ML/MIN
[2020-08-09 13:37] LABS: SQUAMOUS EPITHELIAL CELL,UR MODERATE /LPF (FEW)
[2020-08-09 13:38] LABS: RBC,URINE TNTC /HPF (0-2)
[2020-08-09 13:41] LABS: BACTERIA,URINE 1+ /HPF (Neg)
[2020-08-09 13:48] LABS: WBC,URINE 30-50 /HPF (0-4)
[2020-08-09] MEDS ORDERED: iohexol 300mg/ml 100ml inj. ONE (15:21)
[2020-08-09] MEDS ORDERED: PHEN-888 PO (17:15)
[2020-08-09] MEDS ORDERED: SULF1TAB49 PO (17:15)
[2020-08-09 17:50] VITALS: BP 120/74
== END 2020-08-09 17:33 | disposition home or self-care (01) ==
LOC: ER 11:34
DX: N39.0 Urinary tract infection, site not specified (principal); G43.909 Migraine, unspecified, not intractable, without status migrainosus; I10 Essential (primary) hypertension; F41.9 Anxiety disorder, unspecified; Z86.2 Personal history of diseases of the blood and blood-forming organs and certain disorders involving the immune mechanism; Z72.89 Other problems related to lifestyle; Z60.2 Problems related to living alone; Z88.0 Allergy status to penicillin; Z88.5 Allergy status to narcotic agent; Z88.1 Allergy status to other antibiotic agents; Z79.899 Other long term (current) drug therapy
CPT/HCPCS: 36415; 74178; 80053; 81001; 85025; 87088; 87186; 96361; 96374; 96375; 99285; J1885; J2270; J2405; J7030; Q9967; 87077

== ENCOUNTER 2020-08-12 13:26 | Emergency (ER) | payer MEDICAID ==
[~2020-08-12] VITALS: Ht 157.5 cm; Wt 104.9 kg
[~2020-08-12 13:26] MED LIST changes: +PHEN-888 PO
[2020-08-12] MEDS ORDERED: CEFD300C3 PO (13:50)
[2020-08-12 13:57] VITALS: BP 122/75
[2020-08-12] MEDS ORDERED: HYDROcodone/acetaminophen 10/325mg tab PO ONE (14:00)
[2020-08-12] MEDS ORDERED: CefTRIAXone 1000mg IM Kit (w/lidocaine diluent) IM ONE (14:00)
== END 2020-08-12 15:01 | disposition home or self-care (01) ==
LOC: ER 13:27
DX: N39.0 Urinary tract infection, site not specified (principal); R30.0 Dysuria; R10.30 Lower abdominal pain, unspecified; G43.909 Migraine, unspecified, not intractable, without status migrainosus; I10 Essential (primary) hypertension; F41.9 Anxiety disorder, unspecified; Z86.2 Personal history of diseases of the blood and blood-forming organs and certain disorders involving the immune mechanism; Z98.890 Other specified postprocedural states; Z72.89 Other problems related to lifestyle; Z60.2 Problems related to living alone; Z88.0 Allergy status to penicillin; Z88.5 Allergy status to narcotic agent; Z88.1 Allergy status to other antibiotic agents; Z88.8 Allergy status to other drugs, medicaments and biological substances; Z79.2 Long term (current) use of antibiotics; Z79.899 Other long term (current) drug therapy
CPT/HCPCS: 96372; 99283; J0696

== ENCOUNTER 2021-08-08 23:18 | Emergency (ER) | payer MEDICAID ==
[~2021-08-08] VITALS: Ht 157.5 cm; Wt 104.1 kg
[~2021-08-08 23:18] MED LIST changes: +ALBU8.5H17 IH; -ALBU8.5H8 IH; +DIPH-1055 PO; -DIPH25CA46 PO; -PHEN-888 PO; -SULF1TAB49 PO
[2021-08-09 00:34] LABS: BASOPHILS # (AUTO) 0.1 X10'3 (0-0.2); BASOPHILS % (AUTO) 0.7 % (0-1); EOSINOPHILS # (AUTO) 0.2 X10'3 (0-0.9); EOSINOPHILS % (AUTO) 2.1 % (0-6); HEMOGLOBIN 13.7 g/dl (12.0-16.0); LYMPHOCYTES # (AUTO) 2.5 X10'3 (1.1-4.8); LYMPHOCYTES % (AUTO) 27.2 % (21-51); MEAN CORPUSCULAR HEMOGLOBIN 31.6 PG (27.0-31.0); MEAN CORPUSCULAR HGB CONC 35.2 g/dL (33.0-36.5); MEAN CORPUSCULAR VOLUME 89.9 FL (78-98); MEAN PLATELET VOLUME 9.1 FL (7.4-10.4); MONOCYTES # (AUTO) 0.7 X10'3 (0-0.9); MONOCYTES % (AUTO) 7.2 % (2-12); NEUTROPHILS # (AUTO) 5.8 X10'3 (1.8-7.7); NEUTROPHILS % (AUTO) 62.8 % (42-75); PLATELET COUNT 289 X10'3 (140-440); RED BLOOD COUNT 4.34 X10'6 (4.20-5.60); RED CELL DISTRIBUTION WIDTH 12.9 % (11.5-14.5); WHITE BLOOD COUNT 9.2 X10'3 (4.5-11.0)
[2021-08-09 00:39] LABS: ALANINE AMINOTRANSFERASE 26 U/L (12-78); ALBUMIN 3.6 G/DL (3.4-5.0); ALKALINE PHOSPHATASE 94 IU/L (46-116); ANION GAP 11 (8-16); ASPARTATE AMINO TRANSFERASE 13 U/L (10-37); BILIRUBIN,TOTAL 0.1 MG/DL (0.1-1.0); BLOOD UREA NITROGEN 17 MG/DL (7-18); BUN/CREATININE RATIO 22.7 (6.6-38.0); CALCIUM 8.5 MG/DL (8.5-10.1); CHLORIDE 106 MMOL/L (99-107); CREATININE 0.75 MG/DL (0.40-0.90); GLUCOSE 132 MG/DL (70-104); LIPASE 56 U/L (73-393); POTASSIUM 4.4 MMOL/L (3.5-5.1); SODIUM 140 MMOL/L (135-145); TOTAL CARBON DIOXIDE 23.5 MMOL/L (24-32); TOTAL PROTEIN 7.1 G/DL (6.4-8.2); eGFR 85 ML/MIN
[2021-08-09 02:10] LABS: URINE HCG NEGATIVE (NEG)
[2021-08-09 02:35] LABS: CLARITY,URINE CLEAR (Clear); COLOR,URINE YELLOW (Yellow); GLUCOSE, URINE NEGATIVE (Neg); KETONES,URINE TRACE mg/dl (Neg); LEUKOCYTE ESTERASE ,URINE NEGATIVE (Neg); NITRITES, URINE NEGATIVE (Neg); OCCULT BLOOD,URINE LARGE (Neg); PROTEIN,URINE NEGATIVE (Neg); UROBILINOGEN,URINE 0.2 E.U/dL (0.2-1.0)
[2021-08-09 02:36] LABS: UA COLLECTION TYPE CLN CATCH MIDSTREAM
[2021-08-09 02:46] LABS: BACTERIA,URINE NONE SEEN /HPF (Neg); CAL OXALATE CRYSTALS 2+ /HPF (NEGATIVE); MUCUS STRANDS FEW /LPF (Neg); RBC,URINE 0-2 /HPF (0-2); SQUAMOUS EPITHELIAL CELL,UR FEW /LPF (FEW); WBC,URINE 0-4 /HPF (0-4)
== END 2021-08-09 03:05 | disposition left against medical advice (07) ==
LOC: ER 23:19
DX: R10.9 Unspecified abdominal pain (principal); Z53.21 Procedure and treatment not carried out due to patient leaving prior to being seen by health care provider
CPT/HCPCS: 36415; 80053; 81001; 81025; 83690; 85025

== ENCOUNTER 2023-08-21 00:18 | Emergency (ER) | payer MEDICAID ==
[~2023-08-21] VITALS: Ht 154.9 cm; Wt 65.0 kg
[~2023-08-21 00:18] MED LIST changes: +BENZ1TAB79 PO; -BENZ1TAB8 PO; -DIPH-1055 PO; +DIPH-1212 PO
[2023-08-21 00:30] VITALS: BP 125/85; PULSE 75; RESP 18; TEMP 98.1; O2SAT 100
[2023-08-21] MEDS ORDERED: CEPH-585 PO (00:34)
== END 2023-08-21 00:51 | disposition home or self-care (01) ==
LOC: ER 00:20
DX: L03.113 Cellulitis of right upper limb (principal); G43.909 Migraine, unspecified, not intractable, without status migrainosus; I10 Essential (primary) hypertension; Z88.0 Allergy status to penicillin; Z88.5 Allergy status to narcotic agent; Z88.1 Allergy status to other antibiotic agents; Z88.8 Allergy status to other drugs, medicaments and biological substances; Z98.890 Other specified postprocedural states
CPT/HCPCS: 99283

== ENCOUNTER 2023-12-25 15:01 | Emergency (ER) | payer MEDICAID ==
[~2023-12-25] VITALS: Ht 157.5 cm; Wt 65.9 kg
[~2023-12-25 15:01] MED LIST changes: +CEPH-585 PO
[2023-12-25 15:41] VITALS: BP 132/88; PULSE 97; TEMP 97.8; O2SAT 98
[2023-12-25] MEDS ORDERED: NAPR-56 PO (17:50)
[2023-12-25] MEDS ORDERED: CYCL-1 PO (17:50)
[2023-12-25 18:10] VITALS: RESP 16
[2023-12-25] MEDS: ketorolac trometh. 30mg/ml inj. IM ONE (18:10)
[2023-12-25] MEDS ORDERED: PRED20TA PO (18:10)
== END 2023-12-25 18:36 | disposition home or self-care (01) ==
LOC: ER 15:02
DX: S29.012A Strain of muscle and tendon of back wall of thorax, initial encounter (principal); G43.909 Migraine, unspecified, not intractable, without status migrainosus; I10 Essential (primary) hypertension; D64.9 Anemia, unspecified; F41.9 Anxiety disorder, unspecified; Z98.890 Other specified postprocedural states; Z88.1 Allergy status to other antibiotic agents; Z88.0 Allergy status to penicillin; Z88.8 Allergy status to other drugs, medicaments and biological substances; Z79.899 Other long term (current) drug therapy; Z79.2 Long term (current) use of antibiotics; Z60.2 Problems related to living alone; X58.XXXA Exposure to other specified factors, initial encounter; Y93.89 Activity, other specified; Y92.89 Other specified places as the place of occurrence of the external cause; Y99.8 Other external cause status
CPT/HCPCS: 96372; 99283; J1885

== ENCOUNTER 2023-12-27 10:53 | Emergency (ER) | payer MEDICAID ==
[~2023-12-27] VITALS: Ht 157.5 cm; Wt 65.0 kg
[~2023-12-27 10:53] MED LIST changes: +NAPR-56 PO; +PRED20TA PO
[2023-12-27 10:55] VITALS: BP 152/92; PULSE 93; TEMP 98.4; O2SAT 99
[2023-12-27 12:01] VITALS: RESP 16
[2023-12-27] MEDS: dexamethasone sod phosphate 10mg/ml inj IM STA (12:01)
[2023-12-27] MEDS: HYDROcodone/acetaminophen 10/325mg tab PO ONE (12:01)
[2023-12-27] MEDS ORDERED: PRED20TA PO (12:17)
[2023-12-27] MEDS ORDERED: HYDR-3965 PO (12:17)
== END 2023-12-27 12:31 | disposition home or self-care (01) ==
LOC: ER 10:53
DX: M54.12 Radiculopathy, cervical region (principal); G43.909 Migraine, unspecified, not intractable, without status migrainosus; I10 Essential (primary) hypertension; Z88.0 Allergy status to penicillin; Z88.5 Allergy status to narcotic agent; Z88.1 Allergy status to other antibiotic agents; Z88.8 Allergy status to other drugs, medicaments and biological substances; Z79.2 Long term (current) use of antibiotics; Z79.899 Other long term (current) drug therapy; Z88.6 Allergy status to analgesic agent; Z98.890 Other specified postprocedural states
CPT/HCPCS: 96372; 99283; J1100

== ENCOUNTER 2023-12-31 07:45 | Emergency (ER) | payer MEDICAID ==
[~2023-12-31] VITALS: Ht 157.5 cm; Wt 98.5 kg
[~2023-12-31 07:45] MED LIST changes: +HYDR-3965 PO
[2023-12-31] MEDS: ketorolac trometh. 30mg/ml inj. IV STA (09:06)
[2023-12-31] MEDS: BUPIVAcaine/PF 2.5 mg/ml (0.25%) 30ml vial IJ ONE (09:34)
[2023-12-31] MEDS: triamcinolone acetonide 40mg/ml inj IJ ONE (09:34)
[2023-12-31 09:50] VITALS: BP 119/86; PULSE 83; RESP 16; TEMP 98.3; O2SAT 96
== END 2023-12-31 09:52 | disposition home or self-care (01) ==
LOC: ER 07:45
DX: M25.511 Pain in right shoulder (principal); G43.909 Migraine, unspecified, not intractable, without status migrainosus; I10 Essential (primary) hypertension; D64.9 Anemia, unspecified; F41.9 Anxiety disorder, unspecified; Z98.890 Other specified postprocedural states; Z88.1 Allergy status to other antibiotic agents; Z88.0 Allergy status to penicillin; Z88.8 Allergy status to other drugs, medicaments and biological substances; Z79.899 Other long term (current) drug therapy; Z79.1 Long term (current) use of non-steroidal anti-inflammatories (NSAID); Z79.2 Long term (current) use of antibiotics; Z60.2 Problems related to living alone; M79.18 Myalgia, other site
CPT/HCPCS: 20552; 73030; 99284

== ENCOUNTER 2024-03-18 08:30 | Outpatient (CLI) | payer MEDICAID ==
[~2024-03-18 08:30] MED LIST changes: -HYDR-3965 PO; -NAPR-56 PO; -PRED20TA PO
== END 2024-03-18 23:59 | disposition home or self-care (01) ==
LOC: MRI02 08:30
PROVIDERS: ATTEND Anesthesiology Pain Medicine
DX: M47.816 Spondylosis without myelopathy or radiculopathy, lumbar region (principal); M54.50 Low back pain, unspecified; R20.2 Paresthesia of skin; G89.4 Chronic pain syndrome; M25.551 Pain in right hip; F07.81 Postconcussional syndrome; M48.061 Spinal stenosis, lumbar region without neurogenic claudication
CPT/HCPCS: 72148

== ENCOUNTER 2024-04-27 23:32 | Emergency (ER) | payer MEDICAID ==
[~2024-04-27] VITALS: Ht 160 cm; Wt 61.4 kg
[2024-04-27 23:59] LABS: BASOPHILS # (AUTO) 0.1 X10'3 (0-0.2); BASOPHILS % (AUTO) 1.2 % (0-1); EOSINOPHILS # (AUTO) 0.1 X10'3 (0-0.9); EOSINOPHILS % (AUTO) 1.6 % (0-6); HEMATOCRIT 39.3 % (35.0-45.0); HEMOGLOBIN 13.2 g/dl (12.0-16.0); LYMPHOCYTES # (AUTO) 2.8 X10'3 (1.1-4.8); LYMPHOCYTES % (AUTO) 34.7 % (21-51); MEAN CORPUSCULAR HEMOGLOBIN 31.7 PG (27.0-31.0); MEAN CORPUSCULAR HGB CONC 33.6 g/dL (33.0-36.5); MEAN CORPUSCULAR VOLUME 94.1 FL (78-98); MEAN PLATELET VOLUME 8.2 FL (7.4-10.4); MONOCYTES # (AUTO) 0.5 X10'3 (0-0.9); MONOCYTES % (AUTO) 6.4 % (2-12); NEUTROPHILS # (AUTO) 4.5 X10'3 (1.8-7.7); NEUTROPHILS % (AUTO) 56.1 % (42-75); PLATELET COUNT 271 X10'3 (140-440); RED BLOOD COUNT 4.17 X10'6 (4.20-5.60); RED CELL DISTRIBUTION WIDTH 12.8 % (11.5-14.5)
[2024-04-28] MEDS: ketorolac trometh 30MG/ML vial 30 MG/ML VIAL IV ONE (00:16)
[2024-04-28 00:19] LABS: ALANINE AMINOTRANSFERASE 19 U/L (12-78); ALBUMIN 3.9 G/DL (3.4-5.0); ALBUMIN/GLOBULIN RATIO 1.3 (1.1-1.5); ALKALINE PHOSPHATASE 67 IU/L (46-116); ANION GAP 8 (8-16); ASPARTATE AMINO TRANSFERASE 14 U/L (10-37); BILIRUBIN,TOTAL 0.6 MG/DL (0.1-1.0); BLOOD UREA NITROGEN 10 MG/DL (7-18); BUN/CREATININE RATIO 14.5 (10.0-20.0); CALCIUM 8.6 MG/DL (8.5-10.1); CHLORIDE 102 MMOL/L (99-107); CREATININE 0.69 MG/DL (0.40-0.90); GLUCOSE 96 MG/DL (70-104); POTASSIUM 3.6 MMOL/L (3.5-5.1); SODIUM 136 MMOL/L (135-145); TOTAL CARBON DIOXIDE 26.3 MMOL/L (24-32); TOTAL PROTEIN 6.9 G/DL (6.4-8.2); eCRCL 86 ML/MIN; eGFR > 90 ML/MIN
[2024-04-28 00:26] LABS: PRO BRAIN NATRIURETIC PEPTIDE 124 PG/ML (0-125)
[2024-04-28 00:45] LABS: ETHANOL < 10 MG/DL (<10)
[2024-04-28 03:11] LABS: BILIRUBIN,URINE NEGATIVE (Neg); CLARITY,URINE CLEAR (Clear); COLOR,URINE YELLOW (Yellow); GLUCOSE, URINE NEGATIVE (Neg); KETONES,URINE NEGATIVE (Neg); LEUKOCYTE ESTERASE ,URINE SMALL (Neg); NITRITES, URINE NEGATIVE (Neg); OCCULT BLOOD,URINE TRACE-INTACT (Neg); PROTEIN,URINE NEGATIVE (Neg); UROBILINOGEN,URINE 0.2 E.U/dL (0.2-1.0)
[2024-04-28 03:12] LABS: URINE HCG NEGATIVE (NEG)
[2024-04-28 03:13] VITALS: BP 114/73; PULSE 79; TEMP 97.9; O2SAT 98
[2024-04-28 03:13] LABS: UA COLLECTION TYPE OTHER
[2024-04-28 03:18] LABS: SQUAMOUS EPITHELIAL CELL,UR MODERATE /LPF (FEW)
[2024-04-28 03:20] LABS: AMORPHOUS PHOSPHATES 1+; BACTERIA,URINE FEW /HPF (Neg); MUCUS STRANDS NONE SEEN /LPF (Neg); RBC,URINE 0-2 /HPF (0-2); WBC,URINE 0-4 /HPF (0-4)
[2024-04-28 03:23] VITALS: RESP 16
[2024-04-28] MEDS: ketorolac trometh 30MG/ML vial 30 MG/ML VIAL IM ONE (03:23)
[2024-04-28] MEDS: ondansetron/PF 4mg/2ml inj IV ONE (03:26)
[2024-04-28 03:53] LABS: URINE AMPHETAMINE SCREEN POSITIVE (Neg); URINE BARBITUATE SCREEN NEGATIVE (Neg); URINE BENZODIAZEPINES SCREEN NEGATIVE (Neg); URINE CANNABINOID SCREEN POSITIVE (Neg); URINE COCAINE SCREEN NEGATIVE (Neg); URINE METHADONE SCREEN NEGATIVE (Neg); URINE OPIATE SCREEN NEGATIVE (Neg); URINE PHENCYCLIDINE SCREEN NEGATIVE (Neg)
== END 2024-04-28 03:34 | disposition home or self-care (01) ==
LOC: ER 23:33
DX: S00.83XA Contusion of other part of head, initial encounter (principal); M94.0 Chondrocostal junction syndrome [Tietze]; I10 Essential (primary) hypertension; M54.2 Cervicalgia; F41.9 Anxiety disorder, unspecified; Z88.0 Allergy status to penicillin; Z88.1 Allergy status to other antibiotic agents; Z88.5 Allergy status to narcotic agent; Z88.6 Allergy status to analgesic agent; Z88.8 Allergy status to other drugs, medicaments and biological substances; Z79.2 Long term (current) use of antibiotics; Z79.899 Other long term (current) drug therapy; Z98.890 Other specified postprocedural states; W18.30XA Fall on same level, unspecified, initial encounter; Y93.89 Activity, other specified; Y92.89 Other specified places as the place of occurrence of the external cause; Y99.8 Other external cause status
CPT/HCPCS: 36415; 70450; 71045; 72125; 80053; 80305; 80320; 81001; 81025; 83880; 84484; 85025; 87088; 93005; 96372; 96374; 96375; 99285; J1885; J2405; L0172

== ENCOUNTER 2024-11-17 11:23 | Emergency (ER) | payer MEDICAID ==
[~2024-11-17] VITALS: Ht 157.5 cm; Wt 72.0 kg
[~2024-11-17 11:23] MED LIST changes: -CEPH-585 PO
[2024-11-17 11:26] VITALS: BP 111/58; PULSE 86; RESP 18; TEMP 97.7; O2SAT 100
[2024-11-17 13:04] LABS: BASOPHILS # (AUTO) 0.1 X10'3 (0-0.2); BASOPHILS % (AUTO) 0.5 % (0-1); EOSINOPHILS % (AUTO) 0.3 % (0-6); HEMATOCRIT 42.5 % (35.0-45.0); HEMOGLOBIN 14.5 g/dl (12.0-16.0); LYMPHOCYTES % (AUTO) 7.4 % (21-51); MEAN CORPUSCULAR HEMOGLOBIN 31.1 PG (27.0-31.0); MEAN CORPUSCULAR HGB CONC 34.1 g/dL (33.0-36.5); MEAN CORPUSCULAR VOLUME 91.2 FL (78-98); MEAN PLATELET VOLUME 8.4 FL (7.4-10.4); MONOCYTES # (AUTO) 0.9 X10'3 (0-0.9); MONOCYTES % (AUTO) 7.2 % (2-12); NEUTROPHILS # (AUTO) 10.9 X10'3 (1.8-7.7); NEUTROPHILS % (AUTO) 84.6 % (42-75); PLATELET COUNT 264 X10'3 (140-440); RED BLOOD COUNT 4.66 X10'6 (4.20-5.60); RED CELL DISTRIBUTION WIDTH 12.9 % (11.5-14.5); WHITE BLOOD COUNT 12.9 X10'3 (4.5-11.0)
[2024-11-17 13:21] LABS: ALANINE AMINOTRANSFERASE 14 U/L (12-78); ALBUMIN 3.9 G/DL (3.4-5.0); ALBUMIN/GLOBULIN RATIO 1.2 (1.1-1.5); ALKALINE PHOSPHATASE 77 IU/L (46-116); ANION GAP 8 (8-16); ASPARTATE AMINO TRANSFERASE 17 U/L (10-37); BILIRUBIN,TOTAL 0.7 MG/DL (0.1-1.0); BLOOD UREA NITROGEN 9 MG/DL (7-18); BUN/CREATININE RATIO 12.3 (10.0-20.0); CALCIUM 8.6 MG/DL (8.5-10.1); CHLORIDE 101 MMOL/L (99-107); CREATININE 0.73 MG/DL (0.40-0.90); GLUCOSE 117 MG/DL (70-104); LIPASE 16 U/L (16-77); POTASSIUM 3.7 MMOL/L (3.5-5.1); SODIUM 135 MMOL/L (135-145); TOTAL CARBON DIOXIDE 26.4 MMOL/L (24-32); TOTAL PROTEIN 7.2 G/DL (6.4-8.2); eCRCL 77 ML/MIN; eGFR 86 ML/MIN
== END 2024-11-17 14:49 | disposition left against medical advice (07) ==
LOC: ER 11:23
DX: R10.9 Unspecified abdominal pain (principal); R11.10 Vomiting, unspecified; Z88.0 Allergy status to penicillin; Z53.21 Procedure and treatment not carried out due to patient leaving prior to being seen by health care provider
CPT/HCPCS: 36415; 80053; 83690; 85025